=== PATIENT | female | born 1995 | race Caucasian/White ===

== ENCOUNTER 2017-08-12 06:12 | Inpatient (IN) | payer OTHER ==
[2017-08-12] MEDS ORDERED: CITRIC ACID/SODIUM CITRATE 30 ML SOLUTION. PO (09:45)
[2017-08-12] MEDS ORDERED: 0.9 % SODIUM CHLORIDE 10 ML DISP.SYRIN. IV (09:45)
[2017-08-12] MEDS ORDERED: TERBUTALINE 1 MG/ML VIAL. SQ (09:45)
[2017-08-12] MEDS ORDERED: fentaNYL PF VIAL 100 MCG/2 ML VIAL IV (09:45)
[2017-08-12] MEDS ORDERED: OXYTOCIN 30 UNIT/500 ML PREMIX 500 ML IV (09:45)
[2017-08-12 10:14] LABS: BILIRUBIN,URINE NEGATIVE (NEG); CLARITY,URINE CLEAR; COLOR,URINE YELLOW; GLUCOSE,URINE NEGATIVE (NEG); NITRITE,URINE NEGATIVE (NEG); PROTEIN,URINE NEGATIVE (NEG-TRACE); UROBILINOGEN,URINE 0.2 mg/dL (0.2 mg/dL)
[2017-08-12 10:15] LABS: ADD MAN DIFF? NO
[2017-08-12 10:17] LABS: BASO % 0 % (0-3); EOS # 0.1 x10^3/uL (0.0-0.7); EOS % 1 % (0-3); HEMATOCRIT 36.2 % (36.0-47.0); HEMOGLOBIN 11.9 g/dL (12.0-15.5); LYMPH # 1.9 x10^3/uL (1.0-4.8); LYMPH % 24 % (24-48); MEAN CORPUSCULAR HEMOGLOBIN 28 pg (25-35); MEAN CORPUSCULAR HGB CONC 33 g/dL (31-37); MEAN CORPUSCULAR VOLUME 87 fL (79-100); MONO # 0.5 x10^3/uL (0.0-1.1); MONO % 6 % (0-9); NEUT # 5.4 x10^3uL (1.8-7.7); NEUT % 69 % (31-73); PLATELET COUNT 222 x10^3/uL (140-400); RED BLOOD COUNT 4.18 x10^6/uL (3.50-5.40); RED CELL DISTRIBUTION WIDTH 14.4 % (11.5-14.5); WHITE BLOOD COUNT 7.8 x10^3/uL (4.0-11.0)
[2017-08-12 10:30] LABS: BACTERIA,URINE MODERATE /HPF (0-FEW); SQUAMOUS EPITHELIAL CELL,UR MANY /LPF
[2017-08-12 10:31] LABS: RBC,URINE OCC /HPF (0-2); YEAST,URINE PRESENT /HPF
[2017-08-12] MEDS: IV RINGERS,LACTATED 1000ML 1,000 ML IV ×3 (10:40→20:49)
[2017-08-12] MEDS: OXYTOCIN 30 UNIT/500 ML PREMIX 500 ML IV (10:56)
[2017-08-13 00:14] LABS: RPR Non Reactive (Non Reactive)
[2017-08-13] MEDS: BUTORPHANOL 2 MG/ML VIAL. IV (01:11)
[2017-08-13] MEDS: LIDOCAINE 1% PF 30 ML VIAL. INJ (02:37)
[2017-08-13] MEDS: IBUPROFEN 800 MG TABLET. PO ×2 (04:24→21:49)
[2017-08-13] MEDS ORDERED: AMMONIA AROMATIC 15% INHALANT AMPUL. (04:27)
[2017-08-13] MEDS ORDERED: BENZOCAINE 20% TOPICAL AEROSOL SPRAY 57GM CAN. TP ×2 (04:30→05:00)
[2017-08-13] MEDS ORDERED: L&D EPIDURAL CASSETTE 100 ML EP (05:30)
[2017-08-13] MEDS ORDERED: L&D EPIDURAL SYRINGE 50 ML EP (10:00)
[2017-08-13] MEDS: HYDROcodone/APAP 5/325MG 1 TAB TABLET PO (10:23)
[2017-08-13] MEDS: MAGNESIUM HYDROXIDE 2,400 MG/30 ML ORAL.SUSP. PO (19:20)
[2017-08-13] MEDS ORDERED: IV RINGERS,LACTATED 1000ML 1,000 ML IV (20:39)
[2017-08-13] MEDS: DOCUSATE SODIUM 100 MG CAPSULE. PO (21:49)
[2017-08-14] MEDS: MAGNESIUM HYDROXIDE 2,400 MG/30 ML ORAL.SUSP. PO (12:13)
[2017-08-14] MEDS: IBUPROFEN 800 MG TABLET. PO (18:16)
[2017-08-14] MEDS: DOCUSATE SODIUM 100 MG CAPSULE. PO (20:09)
[2017-08-14] MEDS: HYDROcodone/APAP 5/325MG 1 TAB TABLET PO (20:10)
[2017-08-15] MEDS: HYDROcodone/APAP 5/325MG 1 TAB TABLET PO ×2 (00:39→12:35)
== END 2017-08-15 16:15 | disposition home or self-care (01) | DRG 775 ==
LOC: 3 SO LND 06:12 → 3 NORTH 08-13 04:54
PROC: 10E0XZZ Delivery of Products of Conception, External Approach (ICD-10-PCS; principal; 2017-08-13)
PROC: 0W8NXZZ Division of Female Perineum, External Approach (ICD-10-PCS; 2017-08-13)
PROC: 3E033VJ Introduction of Other Hormone into Peripheral Vein, Percutaneous Approach (ICD-10-PCS; 2017-08-13)
DX: O69.81X0 Labor and delivery complicated by cord around neck, without compression, not applicable or unspecified (principal); Z37.0 Single live birth; Z3A.00 Weeks of gestation of pregnancy not specified
CPT/HCPCS: 36415; 81001; 85025; 86593; 86850; 86900; 86901; 87086; J2590; J7120